=== PATIENT | male | born 1985 | race African-American/Black ===

== ENCOUNTER 2017-02-05 17:17 | Inpatient (IN) ==
[2017-02-05 18:03] LABS: Apearance,Urine CLEAR (Clear); Bacteria,Urine Occasional /HPF (Few); Bilirubin,Urine Negative (Negative); Blood, Urine Negative (Negative); Glucose,Urine (UA) Negative (Negative); Hyaline Casts,Urine 1 /LPF (0-3); Ketones,Urine Negative (Negative); Mucus,Urine Occasional /LPF (Occasional); Nitrite,Urine Negative (Negative); Protein,Urine Negative; RBC,Urine <1 /HPF (0-4); Urine Color Yellow (Yellow); Urine Specific Gravity 1.017 (1.001-1.035); WBC,Urine <1 /HPF (0-6)
[2017-02-05 18:06] LABS: Basophils % 0.5 % (0.0-0.8); Eosinophils % 0.5 % (0.00-10.9); Hematocrit 48.7 VOL% (42.0-52.0); Hemoglobin 16.4 GM/DL (14.0-18.0); Immature Granulocytes % 0.4 %; Immature Granulocytes Absolute 0.03 #; Lymphocytes # 2.4 10*3/uL (1.4-4.0); Lymphocytes % 29.7 % (21.2-54.2); Mean Corpuscular HGB Conc 33.7 GM/DL (32-36); Mean Corpuscular Hemoglobin 30 PG (27-34); Mean Corpuscular Volume 90.2 FL (87-102); Mean Platelet Volume 11.7 FL (9.6-12.0); Monocytes # 0.7 10*3/uL (0.11-0.8); Monocytes % 8.7 % (1.7-12.7); Neutrophils # 4.9 10*3/uL (1.4-7.4); Neutrophils % 60.2 % (38.7-73.9); Platelet Count 197 T/CUMM (130-400); Red Cell Distribution Width 15.9 % (9.3-17.3); White Blood Count 8.1 T/CUMM (4-12)
[2017-02-05 18:13] LABS: Alanine Aminotransferase 37 U/L (16-61); Albumin 3.5 G/DL (3.4-5.0); Alkaline Phosphatase 66 U/L (45-117); Aspartate Amino Transferase 27 U/L (0-37); Blood Urea Nitrogen 21 MG/DL (7-18); Calcium 8.9 MG/DL (8.5-10.1); Glucose 92 MG/DL (74-106); Potassium 4.1 MMOL/L (3.5-5.1); Sodium 143 MMOL/L (136-145); Total Protein 6.7 G/DL (6.4-8.3)
--- NOTE | 2017-02-05 18:15 | CT Report ---
CT head/brain wo con Indication: Slurred speech. Left facial droop. CT BRAIN WITHOUT CONTRAST DLP: 915 mGy*cm. One or more of the following dose reduction techniques was used: Automated exposure control, adjustment of the mA and/or kV according the patient size, or use of iterative reconstruction techniques. Comparison: None. Date of admission: 02/05/2017. Technique: Axial noncontrast CT images of the brain were obtained. Findings: No acute hemorrhage, mass or mass effect. Ventricles and sulci are appropriate for age. Bazzi-white junction is maintained throughout. No focal bone lesions are shown. Nodular mucosal thickening of the ethmoid and left maxillary sinus noted. The remainder paranasal sinuses are clear. Impression: No acute intracranial pathology. Mild chronic appearing ethmoid and left maxillary sinusitis. PROCEDURE INTERPRETED AT [facility] DEPARTMENT OF RADIOLOGY Final Report Signed by: Robert Hernandez M.D.
--- NOTE | 2017-02-05 18:16 | XRay Report ---
XR chest 2V Indication: Hypertension. Chest 2 views: No comparison. Moderate cardiomegaly is present. Mediastinal contours unremarkable. No discrete infiltrates are shown with pulmonary hypoinflation noted. Impression: Moderate cardiomegaly without overt CHF. Pulmonary hypoinflation. PROCEDURE INTERPRETED AT [facility] DEPARTMENT OF RADIOLOGY Final Report Signed by: Robert Hernandez M.D.
[2017-02-05] MEDS ORDERED: LABETALOL 20 MG/4 ML SYRINGE IV STA (18:37)
[2017-02-05] MEDS ORDERED: ENOXAPARIN 100 MG/ML SYRINGE SUBCUT STA (18:38)
[2017-02-05] MEDS ORDERED: LABETALOL 20 MG/4 ML SYRINGE IV ONE (18:50)
[2017-02-05] MEDS ORDERED: ENOXAPARIN 100 MG/ML SYRINGE SUBCUT ONE (18:50)
--- NOTE | 2017-02-05 19:04 | Emergency Department Note ---
Arrival - Arrival Chief Complaint: Neuro Stated Complaint: slurred speech and facial droop ED Nursing Triage Note: Pt arrived via ems with neuro symptoms. Pt with slurred speech and left sided facial drooping. VINCENT's well. Pt reports dizziness. A/O x 3. Pt reports being discharged from other hospital on yesterday for htn. Mode of Arrival: Stretcher Limitations: No Limitations Source: Patient, Family, RN Notes Reviewed Time Seen by Provider: 02/05/17 18:20 - History of Present Illness HPI Narrative: Patient presents via EMS with left-sided facial droop and dysarthria. The family states that he was coming out of the bathroom around [facility] this afternoon and suddenly stood still with his hands clenched in front of him. They say he had a blank stare for approximately 2-5 minutes and was not speaking or responding. He did not fall. There were no convulsions. When he came around he was not disoriented or confused. His only symptoms throughout the episode were left sided facial drooping and dysarthria. On arrival here those were his presenting symptoms and by the time I saw him that had improved significantly according to the nurse. Patient has a history of hypertension and cardiomegaly diagnosed last week during an admission to a hospital in [place]. He was started on lisinopril, metoprolol and Norvasc. He has no other significant past medical history and no history of similar symptoms in the past. Allergies/Adverse Reactions: Allergies Allergy/AdvReac Type Severity Reaction Status Date / Time No Known Allergies Allergy Verified 02/05/17 17:46 Review of System - Review of System 12 point system: reviewed and no additional remarkable complaints except as stated - Review of System Constitutional: Absent: diaphoresis, fever, weakness Head/Ears/Nose/Throat: Absent: nasal drainage, sore throat Respiratory: Absent: cough, respiratory distress Cardiovascular: Absent: chest pain Gastrointestinal: Absent: abdominal pain, nausea, vomiting Musculoskeletal: Absent: arm pain, back pain, neck pain Neurological: Present: weakness (Left facial), confusion (Resolved). Absent: headache, numbness, paresthesias, abnormal gait, vertigo Medical,Surgical,& Family Hx - Medical History Cardio: History of: Hypertension - Surgical History Abdominal Surgeries: Surgical HX of: Appendectomy - Family History Family History: noncontributory - Social History Smoking Status: Smoker, status unknown Frequency of Alcohol Use: Occasionally Type of Drug Use: None Exam Physical Examination: GENERAL: Alert. No acute distress. HEENT: Normocephalic and atraumatic. PERRL, EOM intact. There is no nasal discharge. No pharyngeal erythema or exudate. NECK: Normal inspection. Supple. No lymphadenopathy or meningismus. LUNGS: No respiratory distress. Clear to auscultation bilaterally, no wheezes, rales or rhonchi. HEART: Regular rate and rhythm. SKIN: Color normal. Warm and dry. EXTREMITIES: Nontender. Normal range of motion. NEUROLOGICAL/PSYCHIATRIC: Alert and oriented -4. Normal mood and affect. Speech is slightly slurred. There is some slight drooping of the left face and slight weakness of the left periorbital muscles. The tongue deviates slightly to the left. Facial sensation is intact. Sensory examination and motor examination of the extremities is normal. Reflexes are normal. Babinski's normal bilaterally. There is no pronator drift. Finger to nose is normal bilaterally. Vital Signs: Vital Signs Temperature 98.0 F 02/05/17 17:19 Pulse Rate 107 H 02/05/17 17:19 Respiratory Rate 32 H 02/05/17 17:19 Blood Pressure 167/112 02/05/17 17:19 O2 Sat by Pulse Oximetry 99 02/05/17 17:19 Course - Reevaluation(s) Reevaluation #1: The patient has improved since arrival to the ER. His dysarthria and facial droop were worse on presentation. Now he has only a mild left-sided facial droop, tongue deviation to the left and mild dysarthria. His NIH score is only 2. I have discussed patient with Dr. Delgadillo who agrees that his symptoms are too mild to consider TPA. I have discussed all of this extensively with the family and they also agree that the risk of TPA are too great given his relatively minor and improving deficits. Time: 19:00 Reevaluation #2: I have discussed the patient with the hospitalist service who will see him and admit. I have given him labetalol for his blood pressure. Time: 19:05 Results - Labs CBC & BMP: 02/05/17 17:47 02/05/17 17:47 Disposition Clinical Impression: Cerebrovascular accident Case discussed with: patient, patient's family Disposition: Still a Patient Condition: Stable Time of Disposition: 19:13
[2017-02-05] MEDS ORDERED: ACETAMINOPHEN 325 MG TABLET PO PRN (19:08)
[2017-02-05] MEDS ORDERED: DOCUSATE SODIUM 100 MG CAPSULE PO PRN (19:08)
[2017-02-05] MEDS ORDERED: ONDANSETRON 4 MG/2 ML VIAL IV PRN (19:08)
[2017-02-05] MEDS ORDERED: ZALEPLON 5 MG CAPSULE PO PRN (19:08)
[2017-02-05] MEDS ORDERED: hydrALAZINE 20 MG/1 ML VIAL IV PRN (19:14)
[2017-02-05 19:37] LABS: Barbiturates Screen,Urine Negative (Negative); Benzodiazepines Screen,Urine Negative (Negative); Cannabinoid Screen,Urine Negative (Negative); Opiate Screen,Urine Negative (Negative); Phencyclidine Screen,Urine Negative (Negative)
--- NOTE | 2017-02-05 20:03 | Hospitalist History & Physical ---
Assessment and Plan - Time spent with patient Time spent with patient: Greater than 30 minutes Time spent discussing smoking cessation with patient: 3 to 10 minutes (1) Cerebrovascular accident Status: Acute Assessment and plan: Admit to monitored bed. Consult neurology. Check lipid panel, HA1C, TSH. Start ASA and statin. Obtain MRI brain, carotid US, 2D echo in AM. Smoking cessation Recommend weight loss. Stroke order set used. PT/OT/ST consult. Current Visit: Yes Qualifiers: CVA mechanism: unspecified Qualified Code(s): I63.9 - Cerebral infarction, unspecified (2) Hypertension Status: Acute Assessment and plan: Hydralazine PRN. Start metoprolol and norvasc. Allow for permissive HTN. Current Visit: Yes Qualifiers: Hypertension type: essential hypertension Qualified Code(s): I10 - Essential (primary) hypertension (3) Tobacco abuse Status: Acute Assessment and plan: Smoking cessation discussed for 5 minutes. Current Visit: Yes History of Present Illness Chief complaint: Left-sided facial drooping History of present illness: Mr. Mckinney is a 31 year old male brought to the ED by EMS accompanied by family with complaints of left-sided facial drooping. Mr. Mckinney reports that onset of symptoms began today around 15:30 when he was unable to spit into the bathroom sink and his words became slurred. He also reports that his bilateral hands were drawn up. Upon arrival to the ED, Mr. Mckinney was found to have elevated BP with SBP >180 and DBP >100. Since arrival to the ED, his symptoms have improved somewhat, but he states he is not back to baseline. He reports also having associated intermittent left-sided chest pain that felt like pressure. This chest pain has also improved since arrival to the ED. Additionally, Mr. Mckinney reports that he was admitted to a hospital in [place], [place] on for severely elevated BP and was told he had an enlarged heart. He was discharged yesterday with new prescriptions for BP meds of which he took the first dose this morning. Mr. Maguire has no PMH and took no medications prior to his new diagnosis of HTN on . He has a surgical history of appendectomy However, he does have a family medical history significant for HTN, DM, CVA, COPD and CAD. Allergies Allergy/AdvReac Type Severity Reaction Status Date / Time No Known Allergies Allergy Verified 02/05/17 17:46 Medical,Surgical,& Family Hx - Medical History Cardio: History of: Hypertension - Surgical History Abdominal Surgeries: Surgical HX of: Appendectomy - Family History Family History: Reports;: Family Diabetes, Family Heart Disease, Family Hypertension, Family Stroke - Social History Smoking Status: Current every day smoker Have you smoked in the last 12 months: Yes Time spent discussing smoking cessation with patient: 3 to 10 minutes (5 minutes ) Frequency of Alcohol Use: Occasionally Type of Drug Use: None Marital Status: Single Lives With:: Significant Other Functional capacity: independent ambulation 12 point system: reviewed and no additional remarkable complaints except as stated - Constitutional Constitutional: Absent: fever(s), headache(s), weakness - EENT Eyes: Absent: blurry vision, diplopia, loss of vision Ears: Absent: decreased hearing, ear discharge, tinnitus Nose, mouth and throat: Absent: dysphagia, headache(s) - Cardiovascular Cardiovascular: Present: chest pain at rest. Absent: dyspnea, dyspnea on exertion, edema, palpitations - Respiratory Respiratory: Absent: cough, dyspnea, dyspnea on exertion, wheezing, pain on inspiration - Gastrointestinal Gastrointestinal: Absent: abdominal pain, constipation, diarrhea, nausea, vomiting - Genitourinary Genitourinary: Absent: dysuria - Musculoskeletal Musculoskeletal: Absent: muscle weakness, myalgias - Neurological Neurological: Present: abnormal speech, focal weakness. Absent: abnormal gait, confusion, convulsions, disequilibrium, dizziness, headache(s), memory loss, numbness, paresthesias, syncope - Psychiatric Psychiatric: Absent: anxiety, confusion, depression, memory loss - Endocrine Endocrine: Absent: polydipsia, polyphagia, polyuria - Hematologic/Lymphatic Hematologic/Lymphatic: Absent: easy bleeding, easy bruising Exam - Constitutional Vitals: Period Temp Pulse Resp BP Sys/[place] Pulse Ox Last 24 Hr 98.0 F-98.0 F 93-109 22-32 149-188/95-128 94-100 Exam: Constitutional System: Well-developed. No distress. No tremulousness. Patient is alert awake and oriented 3. Head: Normocephalic, atraumatic. Ears, Nose and Throat System: No pain or tenderness. No epistaxis or discharge Eyes System: Pupils equal, round, and reactive. Extraocular muscles intact. Neck: Supple, without adenopathy, No jugular venous distention. No thyromegaly, neck mass, or prior surgery apparent. Respiratory System: Chest clear to auscultation. Cardiovascular System: Heart with regular rate and rhythm. No murmur. GI System: Abdomen soft, nontender. Normo active bowel sounds present. Musculoskeletal System: limbs with no pedal edema. Full distal pulses. Normal capillary refill. Neurological System: Mild left-sided facial dropping. Mild dysarthria with slurred speech, however, speech is grossly understandable. Facial sensory perception equal bilaterally. BUE and BLE strength 5/5. Tongue deviation to the left. Extraocular movements intact. Psychiatric System: Conversation is rational Results - Labs CBC & BMP: 02/05/17 17:47 02/05/17 17:47 Lab Results: I have reviewed the past 24 hour labs - Diagnostic Findings Procedure: CT: report reviewed by me Quality Measures - Stroke Onset of Symptoms Date: 02/05/17 Onset of Symptoms Time: 15:30
[2017-02-05 21:08] LABS: Osmolality,Calculated 288.8 MOS/KG (273-304); Potassium 3.8 MMOL/L (3.5-5.1); Troponin I Only 0.024 NG/ML (0.00-0.045)
[2017-02-05] MEDS: ATORVASTATIN 80 MG TABLET PO SCH (22:36)
[2017-02-05] MEDS: SODIUM CHLORIDE 0.9% 1,000 ML IV SCH (23:20)
[2017-02-06 06:28] LABS: Magnesium 2.4 MG/DL (1.8-2.4); Risk Ratio 5.64; Thyroid Stimulating Hormone 0.984 uIU/ml (0.358-3.74); VLDL CHOLESTEROL 25.6 MG/DL
[2017-02-06] MEDS: METOPROLOL TARTRATE 25 MG TABLET PO SCH (09:11)
[2017-02-06] MEDS: amLODIPine 2.5 MG TABLET PO SCH (09:12)
[2017-02-06] MEDS: ASPIRIN EC 81 MG TABLET PO SCH (09:12)
[2017-02-06] MEDS: PANTOPRAZOLE 40 MG TABLET PO SCH (09:12)
--- NOTE | 2017-02-06 09:18 | Ultrasound Report ---
CAROTID ULTRASOUND Comparison: None. Findings: Grayscale, color Doppler and pulsed Doppler interrogation of the carotid and vertebral arteries performed. Severity of stenosis based on flow velocity measurements using NASCET criteria. Ultrasound images are captured and stored. Distal right ICA diameter: 5.4 mm Distal left ICA diameter: 5.3 mm Peak systolic flow velocities in centimeters per second are as follows: Right: CCA: 89.9 Proximal ICA: 45.8 Distal ICA: 37.9 ICA/CCA ratio: 0.5 Left: CCA: 84.9 Proximal ICA: 56.6 Distal ICA:66.6 ICA/CCA ratio: 0.8 External carotid arteries: Both are patent with antegrade flow. Vertebral arteries: Both are patent with antegrade flow. Grayscale and color Doppler images: No significant focal plaque deposition identified, with normal color Doppler flow present. Pulse Doppler waveform interrogation: No significant spectral broadening. Impression: No hemodynamically significant stenosis of either ICA origin. PROCEDURE INTERPRETED AT [facility] DEPARTMENT OF RADIOLOGY Final Report Signed by: Robert Hernandez M.D.
--- NOTE | 2017-02-06 10:41 | EKG Report ---
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
--- NOTE | 2017-02-06 11:48 | Magnetic Resonance Report ---
MR head/brain wo con Indication: Acute stroke. MRI BRAIN WITHOUT CONTRAST Technique: Multiplanar noncontrast MR images of the brain were obtained. Comparison: None. Findings: Small area of restricted diffusion involves the right parietal cortex. Only limited T2 signal changes in the region. No evidence of hemorrhage on gradient echo. No mass or mass effect. No volume loss. No significant T2 or FLAIR hyperintensities within the deep white matter of the convexities. Orbits are symmetric. Nodular mucosal thickening of the left maxillary and ethmoid sinus is noted. Internal auditory canals are symmetric. Impression: Acute or subacute small infarct of the right parietal lobe. PROCEDURE INTERPRETED AT [facility] DEPARTMENT OF RADIOLOGY Final Report Signed by: Robert Hernandez M.D.
--- NOTE | 2017-02-06 11:49 | Event Note ---
Patient gone for MRI
--- NOTE | 2017-02-06 14:15 | Hospitalist Progress Note ---
Assessment and Plan (1) Cerebrovascular accident Status: Acute Assessment and plan: Echo ordered Neurology consulted MRI with acute or subacute small infarct of the right parietal lobe Current Visit: Yes Qualifiers: CVA mechanism: unspecified Qualified Code(s): I63.9 - Cerebral infarction, unspecified (2) Hypertension Status: Acute Current Visit: Yes Qualifiers: Hypertension type: essential hypertension Qualified Code(s): I10 - Essential (primary) hypertension (3) Tobacco abuse Status: Acute Current Visit: Yes Hospitalist: Subjective Interval history: No acute events overnight. Long discussion with patient today about the importance of medication compliance. Exam - Constitutional Vitals: Period Temp Pulse Resp BP Sys/[place] Pulse Ox Last 24 Hr 96.6 F-98.0 F 87-109 19-32 123-188/79-134 94-100 General appearance: over weight - Head Head exam: Present: normocephalic, atraumatic - Eye Eye exam: Present: EOMI Pupils: Present: DELORES - ENT ENT exam: Present: normal exam - Neck Neck exam: Present: normal inspection - Respiratory Respiratory exam: Present: clear to auscultation bilaterally. Absent: rhonchi, wheezes - Cardiovascular Cardiovascular exam: Present: regular rate and rhythm - GI/Abdominal GI/Abdominal exam: Present: normal bowel sounds, soft. Absent: tenderness, rebound - Extremities Exam Extremities exam: Present: normal inspection - Back Exam Back exam: Present: normal inspection - Neurological Exam Neurological exam: Present: alert, oriented X3 - Psychiatric Psychiatric exam: Present: normal affect, normal mood - Skin Skin exam: Present: warm, intact Results - Labs CBC & BMP: 02/05/17 17:47 02/05/17 20:27 Quality Measures - Stroke Onset of Symptoms Date: 02/05/17 Onset of Symptoms Time: 15:30 Presenting Symptoms: Left hemiparesis
[2017-02-06] MEDS: SODIUM CHLORIDE 0.9% 1,000 ML IV SCH (16:39)
--- NOTE | 2017-02-06 16:58 | Neurology Consult Note ---
History of Present Illness History of present illness: Mr. Mckinney is a 31 year old right handed AA gentleman with PMHx significant for HTN, smoking brought to the ED by EMS accompanied by family with complaints of left-sided facial drooping. Mr. Mckinney reports that onset of symptoms began yesterday around 15:30 when he was unable to spit into the bathroom sink and his words became slurred. He also reports that his bilateral hands were drawn up. Upon arrival to the ED, Mr. Mckinney was found to have elevated BP with SBP >180 and DBP >100. Since admission to the hospital his symptoms has improved significantly, but he states he is not back to baseline. Additionally , Mr. Mckinney reports that he was admitted to a hospital in [place], [place] on for severely elevated BP and was told he had an enlarged heart. He was discharged yesterday with new prescriptions for BP meds of which he took the first dose this morning. Mr. Maguire has no PMH and took no medications prior to his new diagnosis of HTN on . MRI brain revealed acute to subacute right perital lobe infarct. Carotid doppler is negative and lipid profile is normal. Allergies Allergy/AdvReac Type Severity Reaction Status Date / Time No Known Allergies Allergy Verified 02/05/17 17:46 12 point system: reviewed and no additional remarkable complaints except as stated Medical,Surgical,& Family Hx - Medical History Cardio: History of: Hypertension - Surgical History Abdominal Surgeries: Surgical HX of: Appendectomy - Family History Family History: Reports;: Family Diabetes, Family Heart Disease, Family Hypertension, Family Stroke - Social History Smoking Status: Current every day smoker Frequency of Alcohol Use: Occasionally Type of Drug Use: None Exam - Constitutional Vitals: Period Temp Pulse Resp BP Sys/[place] Pulse Ox Last 24 Hr 96.6 F-98.0 F 87-109 19-32 123-188/79-134 94-100 Exam: GENERAL: Patient is in no acute distress. NECK: Neck is supple. There is no JVD. No carotid bruits present. No thyroid masses. CVS: First and second heart sounds are normal. There is no S3 present. Regular rate and rhythm. RESPIRATORY: Lungs are clear to auscultation without any rales or rhonchi. ABDOMEN: Soft and non-tender. Bowel sounds are present. There is no hepatosplenomegaly. EXT: There is no palpable edema. Peripheral pulses are present. Skin: No rashes Central Nervous system: General: Alert, awake and Oriented x 3 Speech: Fluent Comprehension: Intact and normal Facial expressions: Normal Cranial Nerves: CN1/Olfactory: Normalnormalunreliable CN III, and : DELORES & EOMI CN V: Normal & intact CN VII: face is symmetric CNVIII: Normal CN XI/X/XI/XII: Intact and Normal Motor: Bulk and Tone is normal. Strength in the right 5/5 Strength in the left 5/5 Sensory: Grossly intact for all the modalities of PP, LT and temp sense Reflexes: 1+ and symmetrical Cerebellar function: Normal finger to nose and heel to lopes testing. Toes: Equivocal Gait: Normal Results - Labs CBC & BMP: 02/05/17 17:47 02/05/17 20:27 Assessment and Plan (1) Cerebrovascular accident Status: Acute Assessment and plan: Cont ASA a day Current Visit: Yes Qualifiers: CVA mechanism: unspecified Qualified Code(s): I63.9 - Cerebral infarction, unspecified (2) Hypertension Status: Acute Assessment and plan: Cont current meds Current Visit: Yes Qualifiers: Hypertension type: essential hypertension Qualified Code(s): I10 - Essential (primary) hypertension (3) Tobacco abuse Status: Acute Assessment and plan: Counseled regarding cessation of smoking Echo Current Visit: Yes
[2017-02-06] MEDS ORDERED: ENOXAPARIN 40 MG/0.4 ML SYRINGE SUBCUT SCH (18:00)
[2017-02-06] MEDS: ATORVASTATIN 80 MG TABLET PO SCH (21:42)
--- NOTE | 2017-02-06 23:30 | ECHO Report ---
Iqra Mckinney Exam Date: 02/06/2017 10:27 Referring Physician: Technologist: Marie Ac LRSHIVAM Age: 31 Ht (in): 72 Wt (lb): 243 Gender: M Exam [facility]: [facility] Echo Indications: slurred speech, weakness, CVA, HTN BP: 140 / 97 HR: 91 Rhythm: Sinus Technical Quality: Good IMPRESSIONS no mass or thrombus is seen Mild concentric left ventricular hypertrophy with diastolic dysfunction. Left ventricular ejection fraction is estimated at 20 %. The right atrium is mildly enlarged. Moderately increased left atrial size. Mildly thickened mitral valve with mild mitral regurgitation. Trace aortic valve regurgitation. Trace tricuspid valve regurgitation. Trace pulmonary valve regurgitation. MEASUREMENTS (Male / Female) Normal Values 2D ECHO LV Diastolic Diameter PLAX 5.7 cm 4.2 - 5.9 / 3.9 - 5.3 cm LV Systolic Diameter PLAX 4.7 cm LV Fractional Shortening PLAX 16.5 % IVS Diastolic Thickness 1.4 cm 0.6 - 1.0 / 0.6 - 0.9 cm LVPW Diastolic Thickness 1.4 cm 0.6 - 1.0 / 0.6 - 0.9 cm Aortic Root Diameter 2.6 cm LA Systolic Diameter LX 4.3 cm 3.0 - 4.0 / 2.7 - 3.8 cm FINDINGS Left Ventricle Moderately increased left ventricular cavity size.mild concentric left ventricular hypertrophy with diastolic dysfunction. Left ventricular ejection fraction is estimated at 20 %. Right Ventricle Mildly increased right ventricular size. Right Atrium The right atrium is mildly enlarged. Left Atrium Moderately increased left atrial size. Mitral Valve Mildly thickened mitral valve with mild mitral regurgitation. Aortic Valve The aortic valve is trileaflet and has normal motion. Trace aortic valve regurgitation. Tricuspid Valve Morphologically normal tricuspid valve. Trace tricuspid valve regurgitation. Pulmonic Valve Morphologically normal pulmonic valve. Trace pulmonary valve regurgitation. Pericardium No pericardial effusion. Aorta Normal size aortic root and proximal ascending aorta. Corona Motley MD (Electronically Signed) Final Date: 06 February 2017 23:28
[2017-02-07 05:01] LABS: Basophils # 0.1 10*3/uL (0.0-0.2); Basophils % 0.7 % (0.0-0.8); Eosinophils # 0.1 10*3/uL (0.0-0.87); Hematocrit 48.4 VOL% (42.0-52.0); Hemoglobin 16.2 GM/DL (14.0-18.0); Immature Granulocytes % 0.3 %; Immature Granulocytes Absolute 0.02 #; Lymphocytes # 2.3 10*3/uL (1.4-4.0); Lymphocytes % 31.8 % (21.2-54.2); Mean Corpuscular HGB Conc 33.5 GM/DL (32-36); Mean Corpuscular Hemoglobin 30 PG (27-34); Mean Corpuscular Volume 90.6 FL (87-102); Mean Platelet Volume 11.5 FL (9.6-12.0); Monocytes # 0.5 10*3/uL (0.11-0.8); Monocytes % 7.3 % (1.7-12.7); Neutrophils # 4.2 10*3/uL (1.4-7.4); Neutrophils % 58.9 % (38.7-73.9); Platelet Count 173 T/CUMM (130-400); Red Blood Count 5.34 MC/CUMM (3.8-5.5); Red Cell Distribution Width 15.8 % (9.3-17.3); White Blood Count 7.2 T/CUMM (4-12)
[2017-02-07 05:30] LABS: Calcium 8.9 MG/DL (8.5-10.1); Magnesium 2.3 MG/DL (1.8-2.4); Osmolality,Calculated 287.8 MOS/KG (273-304); Potassium 4.5 MMOL/L (3.5-5.1)
[2017-02-07] MEDS: METOPROLOL TARTRATE 25 MG TABLET PO SCH (08:26)
[2017-02-07] MEDS: ASPIRIN EC 81 MG TABLET PO SCH (08:27)
[2017-02-07] MEDS: PANTOPRAZOLE 40 MG TABLET PO SCH (08:28)
[2017-02-07] MEDS: amLODIPine 2.5 MG TABLET PO SCH (08:28)
[2017-02-07] MEDS ORDERED: CARVEDILOL 6.25 MG TABLET PO SCH (09:30)
[2017-02-07] MEDS ORDERED: LOSARTAN 25 MG TABLET PO SCH (09:30)
--- NOTE | 2017-02-07 10:22 | Cardiology Consult Note ---
Alma Snyder April RN, am scribing for, and in the presence of, Samara Oshea MD 10:21. Assessment and Plan - Time spent with patient Time spent with patient: Greater than 30 minutes (Due to assessment, planning, documentation, medication review) (1) Cardiomyopathy Status: Acute Current Visit: Yes (2) Cerebrovascular accident Status: Acute Current Visit: Yes Qualifiers: CVA mechanism: unspecified Qualified Code(s): I63.9 - Cerebral infarction, unspecified (3) Hypertension Status: Acute Current Visit: Yes Qualifiers: Hypertension type: essential hypertension Qualified Code(s): I10 - Essential (primary) hypertension (4) Tobacco abuse Status: Chronic Current Visit: Yes History of Present Illness - Data of Consult Patient: new to practice Consult date: 02/07/17 Requesting Physician: Angeli Rosado - Consult Narrative Reason for consult: EF 20% History of present illness: [place]: New to cardiology Mr. Mckinney is a 31 year old male who has a history of hypertension. He reports he was started on high blood pressure medicine in the past but quit taking it, mainly because he was "hard headed" or not because of any adverse effects. Last week he was admitted in the hospital in [place] for severe hypertension and was also told he had an enlarged heart. He denies taking any daily medications prior to last week. Surgical history is positive for appendectomy. He denies any recent drug use (within the last 2-3 years) and admits to occasional alcohol use. He presented emergency department at [facility] on February 05 with complaint of slurred speech. He denies having any shortness of breath, edema, orthopnea. He has not noticed any chest discomfort. He does report noticing a decrease in his activity level over the last 2-3 months. Within the last 6 months to 1 year he has not had any upper respiratory infection. on arrival his blood pressure was found to be 170/110. He was given labetalol 20 mg IV and hydralazine 10 mg IV in the emergency department. His blood pressures have improved some, but they continue to be elevated. This morning it is 150/104. He has been given IV fluids and his creatinine is improved from 1.6-1.3. TSH was 0.984. Echocardiogram showed ejection fraction of 20%, no mass or thrombus was noted. MRI of the brain indicated acute or subacute small infarct in the right parietal lobe. Dr. Delgadillo has seen him in consultation. Carotid Doppler was negative. This morning he is seen sitting up in chair. He does feel like he is back to his baseline. His speech is not slurred this morning and he has no noticeable muscular weakness. He denies any chest pain or shortness of breath at this time. Assessment/plan: 1. Cardiomyopathy-this is a new diagnosis. He is without overt signs or symptoms of congestive heart failure, and he does not have any anginal symptoms. This may be due to uncontrolled hypertension. We will also rule out HIV. We will refine his antihypertensive regimen to be a cardiomyopathy regimen , including ARB (he has an underlying history of dry cough and we do not want to confuse his symptoms), and beta-lupe. We will reassess his cardiac function in 3 months as long as he remains asymptomatic, and determine whether or not he needs to proceed with cardiac catheterization at that time. If becomes more symptomatic, we may need to proceed with catheterization sooner. 2. Cerebrovascular accident-he feels as though he is back to his baseline. Dr. Delgadillo has seen in consultation. 3. Hypertension-this has been controlled. We will change his metoprolol to Coreg 6.25 twice daily and add Cozaar 25 mg daily. We will go ahead and schedule a one-month follow-up to see us back in the office. 4. Tobacco abuse-merits and techniques of cessation have been addressed. CC: Angeli Rosado MD - Home Medications and Allergies Allergies/Adverse Reactions: Allergies Allergy/AdvReac Type Severity Reaction Status Date / Time No Known Allergies Allergy Verified 02/05/17 17:46 12 point system: reviewed and no additional remarkable complaints except as stated - Constitutional Constitutional: Present: as per HPI - Cardiovascular Cardiovascular: Absent: chest pain at rest, chest pain with activity, dyspnea, dyspnea on exertion, edema, radiating jaw, neck or arm pain, orthopnea - Respiratory Respiratory: Present: cough (Dry) - Gastrointestinal Gastrointestinal: Absent: constipation, diarrhea, hematemesis, hematochezia, melena, nausea, vomiting - Endocrine Endocrine: Present: fatigue Medical,Surgical,& Family Hx - Medical History Cardio: History of: Hypertension Neurology: History of: Cerebrovascular Accident - Surgical History Abdominal Surgeries: Surgical HX of: Appendectomy - Family History Family History: Reports;: Family Diabetes, Family Heart Disease, Family Hypertension, Family Stroke - Social History Smoking Status: Current every day smoker Frequency of Alcohol Use: Occasionally Type of Drug Use: None Physical Examination Vital Signs Temp Pulse Resp BP Pulse Ox 98.0 F 107 H 32 H 167/112 99 02/05/17 17:19 02/05/17 17:19 02/05/17 17:19 02/05/17 17:19 02/05/17 17:19 General: Present: Appears Well, No Apparent Distress HEENT: Present: PERRL, Mucus Membranes Moist Neck: Present: Supple Neck, Midline Trachea, No Bruit Cardiac: Present: Reg Rate and Rhythm, No Murmur, Tachycardia Lungs: Present: Normal Breath Sounds, No Wheeze, Rales, Rhonchi Neuro: Absent: Weakness, Resting Tremor, Essential Tremor Abdomen: Present: Soft, Active Bowel Sounds, Non-Tender. Absent: Distended Skin: Present: Clear. Absent: Rash, Suspicious Lesions Musculoskeletal: Present: No Pain, Normal Range of Motion Extremities: Present: No Edema, Normal Upper Extr. Pulses, Normal Lower Extr. Pulses Result/EKG - Labs CBC & BMP: 02/07/17 04:51 02/07/17 04:51 Lab Results: I have reviewed the past 24 hour labs Labs: Laboratory Results - last 24 hr 02/07/17 02/07/17 04:51 04:51 WBC 7.2 RBC 5.34 Hgb 16.2 Hct 48.4 MCV 90.6 MCH 30 MCHC 33.5 RDW 15.8 Plt Count 173 MPV 11.5 Neut % (Auto) 58.9 Lymph % (Auto) 31.8 [place] % (Auto) 7.3 Eos % (Auto) 1.0 Baso % (Auto) 0.7 Neut # (Auto) 4.2 Lymph # (Auto) 2.3 [place] # (Auto) 0.5 Eos # (Auto) 0.1 Baso # (Auto) 0.1 Immature Gran % 0.3 Nucleated RBC % 0.0 Immature Gran # 0.02 Nucleated RBCs # 0.00 Immature Plt Fraction 0.0 Sodium 144 Potassium 4.5 Chloride 111 H Carbon Dioxide 28 Anion Gap 9.5 BUN 18 Creatinine 1.30 GFR Calculation 112 BUN/Creatinine Ratio 13.00 Glucose 94 Calculated Osmolality 287.8 Calcium 8.9 Magnesium 2.3 - Diagnostic Findings Procedure: Chest x-ray: report reviewed by me - EKG EKG results: interpreted by me (LVH with some repolarization changes) EKG shows: tachycardia, sinus rhythm Quality Measures - Stroke Onset of Symptoms Date: 02/05/17 Onset of Symptoms Time: 15:30 Presenting Symptoms: Left hemiparesis Specialty Discharge - Follow Up or Referrals Follow up with: Samara Oshea MD [Physician] - 1 Month IDayo Jennifer, MD, personally performed the services described in this documentation, ascribed by Jacquie Marquez RN in my presence, and it is both accurate and complete 022 .
[2017-02-07 10:25] LABS: HIV Antigen/Antibody Result Nonreactive (Nonreactive)
--- NOTE | 2017-02-07 11:59 | Discharge Summary ---
<Sharon Medeirosda - Last Filed: 02/07/17 11:57> Hospital Course - Hospital Course Hospital Course: This is a very pleasant 31-year-old male that presented to the ED at [facility] on the night of February 05, 2017 for the evaluation of left-sided facial drooping. Patient reported a medical history significant for hypertension and nicotine addiction and a surgical history of appendectomy. The patient reported the onset of symptoms around 330 on the day of presentation. He reported that he was unable to spit into the bathroom sink and he noticed that his words had become slurred. In addition, the patient reported that his bilateral hands were "drawn up". His family was present and became alarmed when they noticed that the left side of the patient's face was drooping. These observations prompted them to notify EMS for emergency assistance. The patient was subsequently transferred to [facility] for further evaluation. The patient was seen and assessed at the time of ED presentation. The patient was noted to be grossly hypertensive with a blood pressure noted at 167/112 and tachycardic with a heart rate noted at 107. The patient speech remains slightly slurred and a slight droop was noted to the left side of his face. In addition, the patient was also noted to have some weakness to his left upper extremity. Intravenous antihypertensive agents were given in response to the patient's elevated blood pressure. Labs were obtained and were remarkable for chloride of 111, BUN 21, creatinine 1.60, troponin 0 0.020, total creatinine kinase 483, and HDL cholesterol was noted at 28. Urinalysis was essentially unremarkable and urine toxicology was negative. CT head and brain without contrast reported no acute intracranial pathology however mild chronic appearing ethmoid and left maxillary sinusitis was noted. Chest x-ray was remarkable for moderate cardiomegaly without overt congestive heart failure and pulmonary hypoinflation. The patient was subsequently admitted to the hospitalist service for continuation of care. Incidentally, the patient reported a recent hospitalization for severe hypertension 1 week prior to presentation in [place]. He reported that he had been previously diagnosed with hypertension in the past however became noncompliant. During the clinical encounter on last week in [place], the patient reported that he was told that he had cardiomegaly. He reported that he resolved his antihypertensive regimen 1 week prior to presentation. The stroke protocol was initiated. Antihypertensive agents and platelet aggregate others were initiated per protocol. A full stroke workup was performed. On January, carotid Doppler studies were performed which were essentially negative for any evidence of hemodynamically significant stenosis of either internal carotid artery. Echocardiogram performed on February 06, 2017, reported no mass or thrombus seen however, mild concentric left ventricular hypertrophy with diastolic dysfunction was noted. Left ventricular ejection fraction was estimated at 20% along with mildly enlargement of the right atrium and moderately increased left atrial size was noted. There was mildly thickening noted to the mitral valve with mild mitral regurgitation. Trace regurgitation was noted in the aortic, tricuspid, and pulmonary valves. A neurology consultation was requested. The patient was seen and evaluated by neurology and recommendations were given. On February 06, 2017, the patient underwent MRI of the head and brain without contrast which was remarkable for an acute or subacute small infarct of the right parietal lobe. In response to the severity of the patient's current heart function, a cardiology consultation was requested. He was started on coreg and losartan. He will follow-up wiht Dr. Oshea in one month. The patient's condition is stable. He has now reached maximal benefit of inpatient stay and will be discharged to home. We have spoke with the patient in great detail regarding the need to maintain medical compliance. We also spoke with patient regarding the need to refrain from nicotine consumption. He was given information on the free clinic for primary care. Specialty Discharge - Follow Up or Referrals Follow up with: Samara Oshea MD [Physician] - 1 Month Discharge Plan - Discharge Data Disposition: Disch To Home/Self Care - Discharge Medications New Atorvastatin [Lipitor] 80 mg PO BEDTIME #60 tablet Carvedilol [Coreg] 6.25 mg PO BID W/MEALS #60 tablet Losartan [Cozaar] 25 mg PO DAILY #30 tablet amLODIPine [Norvasc] 2.5 mg PO DAILY #30 tablet Aspirin EC Tab 81 mg PO DAILY tablet No Action amLODIPine [Norvasc] 10 mg PO DAILY Metoprolol Tartrate 50 mg PO Q12HR Lisinopril 20 mg PO DAILY Nicotine [Nicotine 14 mg/24 Hr Patch] 1 patch TRANSDERM DAILY PRN PRN Reason: Nicotine Withdrawal - Follow Up or Referral Follow Up: Samara Oshea MD [Physician] - 1 Month - Forms/Instructions Exam - Constitutional Vitals: Period Temp Pulse Resp BP Sys/[place] Pulse Ox Last 24 Hr 97.0 F-98.2 F 83-99 18-20 124-181/70-112 93-99 Discharge Results Labs on day of discharge: Labs from last 24 hours 02/07/17 02/07/17 02/07/17 04:51 04:51 04:48 WBC 7.2 RBC 5.34 Hgb 16.2 Hct 48.4 MCV 90.6 MCH 30 MCHC 33.5 RDW 15.8 Plt Count 173 MPV 11.5 Neut % (Auto) 58.9 Lymph % (Auto) 31.8 [place] % (Auto) 7.3 Eos % (Auto) 1.0 Baso % (Auto) 0.7 Neut # (Auto) 4.2 Lymph # (Auto) 2.3 [place] # (Auto) 0.5 Eos # (Auto) 0.1 Baso # (Auto) 0.1 Immature Gran % 0.3 Nucleated RBC % 0.0 Immature Gran # 0.02 Nucleated RBCs # 0.00 Immature Plt Fraction 0.0 Sodium 144 Potassium 4.5 Chloride 111 H Carbon Dioxide 28 Anion Gap 9.5 BUN 18 Creatinine 1.30 GFR Calculation 112 BUN/Creatinine Ratio 13.00 Glucose 94 Calculated Osmolality 287.8 Calcium 8.9 Magnesium 2.3 HIV 1&2 Antigen & Ab Nonreactive DS: Provider Date of admission: 02/05/17 19:08 Primary care physician: . No PCP Attending physician on admission: Saman Ward MD Consults: 02/05/17 19:08 Consult to Case Mgmt/Social Srvs [CONS] Routine Reason for Case Mgmt/Social Srvs: Discharge Planning Consult to Occupational Therapy [CONS] Routine Reason for Occupational Therapy: Evaluate and Treat Consult Comment: Stroke Consult to Physical Therapy [CONS] Routine Reason for Physical Therapy: Evaluate and Treat Consult Comment: stroke 02/05/17 19:10 Consult to Physician [CONS] Routine Comment: CVA Consulting Provider: Homar Dietrich Consult to Specialist Group: Neurology Person Notified: dr. dietrich Date Notified: 02/06/17 Time Notified: 09:43 02/05/17 21:14 Consult to Pastoral Services [CONS] Routine Comment: Pastoral Screen: Request Candy Spreader Visit Pastoral Screen Source of Request: Patient 02/07/17 07:33 Consult to Physician [CONS] Routine Comment: young patient with uncontrolled htn,cva, ef 20% Consulting Provider: Kim Beltran Discharging clinician: Abigail Medeiros CNP <Angeli Rosado - Last Filed: 02/07/17 12:22> Hospital Course - Time spent with patient Time with patient DS: Greater than 30 minutes (35) Diagnosis - Discharge Diagnosis (1) Cerebrovascular accident Status: Resolved (2) Hypertension Status: Chronic (3) Tobacco abuse Status: Chronic Discharge Plan - Discharge Data Condition at Discharge: Stable Discharge Diet: heart healthy Activity: increase activity as tolerated Hygiene: no restrictions Weight Bearing at Discharge: weight bear as tolerated Exam - Constitutional General appearance: over weight - Head Head exam: Present: normocephalic, atraumatic - Eye Eye exam: Present: EOMI Pupils: Present: DELORES - ENT ENT exam: Present: normal exam - Neck Neck exam: Present: normal inspection - Respiratory Respiratory exam: Present: clear to auscultation bilaterally. Absent: rhonchi, wheezes - Cardiovascular Cardiovascular exam: Present: regular rate and rhythm - GI/Abdominal GI/Abdominal exam: Present: normal bowel sounds, soft. Absent: tenderness, rebound - Extremities Exam Extremities exam: Present: normal inspection - Back Exam Back exam: Present: normal inspection - Neurological Exam Neurological exam: Present: alert, oriented X3 - Psychiatric Psychiatric exam: Present: normal affect, normal mood - Skin Skin exam: Present: warm, intact
--- NOTE | 2017-02-07 13:02 | Neurology Progress Note ---
Neurology - PN : Subjective Interval history: Patient seems to be doing okay. No new problems reported. He is quite asymptomatic. Echocardiogram reveals ejection fraction of 20%. I would recommend some stronger blood thinners such as Eliquis or Xarelto or Pradaxa or Coumadin. Because of patient's lack of insurance he may not be able to afford anything expensive. We will try to put on Plavix and see if if he can afford that. He will see Dr. Oshea as an outpatient Exam (Progress Note) - Constitutional Vitals: Period Temp Pulse Resp BP Sys/[place] Pulse Ox Last 24 Hr 97.0 F-98.2 F 83-99 18-20 124-181/70-112 93-99 Exam: GENERAL: Patient is in no acute distress. NECK: Neck is supple. There is no JVD. No carotid bruits present. No thyroid masses. CVS: First and second heart sounds are normal. There is no S3 present. Regular rate and rhythm. RESPIRATORY: Lungs are clear to auscultation without any rales or rhonchi. ABDOMEN: Soft and non-tender. Bowel sounds are present. There is no hepatosplenomegaly. EXT: There is no palpable edema. Peripheral pulses are present. Skin: No rashes Central Nervous system: General: Alert, awake and Oriented x 3 Speech: Fluent Comprehension: Intact and normal Facial expressions: Normal Cranial Nerves: CN1/Olfactory: Normalnormalunreliable CN III, and : DELORES & EOMI CN V: Normal & intact CN VII: face is symmetric CNVIII: Normal CN XI/X/XI/XII: Intact and Normal Motor: Bulk and Tone is normal. Strength in the right 5/5 Strength in the left 5/5 Sensory: Grossly intact for all the modalities of PP, LT and temp sense Reflexes: 1+ and symmetrical Cerebellar function: Normal finger to nose and heel to lopes testing. Toes: Equivocal Gait: Normal Results - Labs CBC & BMP: 02/07/17 04:51 02/07/17 04:51 Assessment and Plan (1) Cerebrovascular accident Status: Resolved Assessment and plan: Cont ASA a day Add Plavix 75 mg daily Home when okay with PCP Current Visit: Yes Qualifiers: CVA mechanism: unspecified Qualified Code(s): I63.9 - Cerebral infarction, unspecified (2) Hypertension Status: Chronic Assessment and plan: Cont current meds Current Visit: Yes Qualifiers: Hypertension type: essential hypertension Qualified Code(s): I10 - Essential (primary) hypertension (3) Tobacco abuse Status: Chronic Assessment and plan: Counseled regarding cessation of smoking Current Visit: Yes Quality Measures - Stroke Onset of Symptoms Date: 02/05/17 Onset of Symptoms Time: 15:30 Presenting Symptoms: Left hemiparesis Specialty Discharge - Follow Up or Referrals Follow up with: Samara Oshea MD [Physician] - 1 Month
[2017-02-07 13:36] VITALS: BP 155/98
== END 2017-02-07 14:30 | disposition home or self-care (01) | DRG 65 ==
LOC: N.ED 17:17 → SUATTDRO 19:08 → N.EDINP 19:08 → N.2E 19:59
PROVIDERS: ADMIT Family Medicine; ATTEND Internal Medicine

== ENCOUNTER 2017-02-21 19:58 | Observation (INO) ==
[2017-02-21] MEDS ORDERED: ASPIRIN 325 MG TABLET PO STA (21:07)
[2017-02-21] MEDS ORDERED: NITROGLYCERIN SL 0.4 MG TABLET SL PRN (21:07)
[2017-02-21] MEDS ORDERED: NITROGLYCERIN SL 0.4 MG TABLET SL ONE (21:14)
[2017-02-21] MEDS ORDERED: ASPIRIN 325 MG TABLET ONE (21:15)
[2017-02-21 21:38] LABS: Basophils # 0.1 10*3/uL (0.0-0.2); Basophils % 0.9 % (0.0-0.8); Eosinophils % 0.4 % (0.00-10.9); Hematocrit 48.7 VOL% (42.0-52.0); Hemoglobin 16.2 GM/DL (14.0-18.0); Immature Granulocytes % 0.2 %; Immature Granulocytes Absolute 0.02 #; Lymphocytes # 2.1 10*3/uL (1.4-4.0); Lymphocytes % 25.9 % (21.2-54.2); Mean Corpuscular HGB Conc 33.3 GM/DL (32-36); Mean Corpuscular Hemoglobin 30 PG (27-34); Mean Corpuscular Volume 89.9 FL (87-102); Mean Platelet Volume 11.4 FL (9.6-12.0); Monocytes # 0.7 10*3/uL (0.11-0.8); Monocytes % 8.7 % (1.7-12.7); Neutrophils # 5.1 10*3/uL (1.4-7.4); Neutrophils % 63.9 % (38.7-73.9); Platelet Count 191 T/CUMM (130-400); Red Blood Count 5.42 MC/CUMM (3.8-5.5); Red Cell Distribution Width 14.4 % (9.3-17.3)
[2017-02-21 22:07] LABS: Albumin 3.4 G/DL (3.4-5.0); Bilirubin,Total 0.4 MG/DL (0.2-1.0); Calcium 9.6 MG/DL (8.5-10.1); Magnesium 2.6 MG/DL (1.8-2.4); Potassium 3.8 MMOL/L (3.5-5.1); Total Protein 7.1 G/DL (6.4-8.3)
--- NOTE | 2017-02-21 22:31 | Emergency Department Note ---
Danny Snyder Brooke, am scribing for, and in the presence of, Stuart Zavaleta MD 21:13. Waqar Snyder Frederick, MD, personally performed the services described in this documentation, ascribed by Mary Delgado in my presence, and it is both accurate and complete . Arrival - Arrival Chief Complaint: Chest Pain Stated Complaint: chest pain x 2 days,elevated b/p,pain in side ED Nursing Triage Note: Patient to triage with c/o pressure-like pain in the center of his chest for 2 days. Patient states laying on his side makes pain worse. Patient reports he was recently admitted with a TIA last month. Patient is scheduled to see a rabbit breeder next month. Mode of Arrival: Ambulatory Limitations: No Limitations Source: Patient, Significant other, RN Notes Reviewed Time Seen by Provider: 02/21/17 20:55 - History of Present Illness HPI Narrative: Patient is a 31 year old male who presents to the ED with c/o chest pain that started two days ago. Patient describes the pain as pressure and "like something is sitting on my chest." Patient says the pain is intermittent and has lasted as long as an hour. He says the pain is worsened if he lays on his left side but better when he walks. He says he has pain to the bilateral sides that radiates down into his groin but he denies any radiation of pain to the neck, jaw, or arms. However, he does say that he has had some sharp pain in his "fingers." Patient says his blood pressure has been elevated and he states "I can't get it down." Patient's blood pressure during triage was 151/102. He has not taken any pain medications. Patient denies having any diaphoresis but says he has been nauseated, dizzy, and had some shortness of breath, last night. Patient has PMHx of HTN, dyslipidemia, and CVA. He says he had the CVA on February 06 but did not have any lasting effects from it. Patient has FHx of CAD. He is a smoker. Onset (ago): day(s) (2`) Allergies/Adverse Reactions: Allergies Allergy/AdvReac Type Severity Reaction Status Date / Time No Known Allergies Allergy Verified 02/21/17 20:18 Home Medications: Home Medications Medication Instructions Recorded Confirmed Type Aspirin EC Tab 81 mg PO DAILY tablet 02/07/17 Rx Atorvastatin [Lipitor] 80 mg PO BEDTIME #60 tablet 02/07/17 Rx Carvedilol [Coreg] 6.25 mg PO BID W/MEALS #60 tablet 02/07/17 Rx Clopidogrel [Plavix] 75 mg PO DAILY #30 tablet 02/07/17 Rx Lisinopril 20 mg PO DAILY 02/07/17 02/07/17 History Losartan [Cozaar] 25 mg PO DAILY #30 tablet 02/07/17 Rx Metoprolol Tartrate 50 mg PO Q12HR 02/07/17 02/07/17 History Nicotine [Nicotine 14 mg/24 Hr 1 patch TRANSDERM DAILY PRN 02/07/17 02/07/17 History Patch] amLODIPine [Norvasc] 2.5 mg PO DAILY #30 tablet 02/07/17 Rx amLODIPine [Norvasc] 10 mg PO DAILY 02/07/17 02/07/17 History Review of System - Review of System 12 point system: reviewed and no additional remarkable complaints except as stated - Review of System Constitutional: Absent: diaphoresis, fever Respiratory: Present: other (shortness of breath, last night.). Absent: respiratory distress Cardiovascular: Present: chest pain Gastrointestinal: Present: nausea Musculoskeletal: Present: other (bilateral side pain that radiates into groin. Sharp pain in fingers) Skin: Absent: rash Neurological: Present: other (dizziness) Medical,Surgical,& Family Hx - Medical History Cardio: History of: Hypertension Neurology: History of: Cerebrovascular Accident - Surgical History Abdominal Surgeries: Surgical HX of: Appendectomy - Family History Family History: Reports;: Family Diabetes, Family Heart Disease, Family Hypertension, Family Stroke - Social History Smoking Status: Former smoker Frequency of Alcohol Use: None Type of Drug Use: None Exam Vital Signs: Vital Signs Temperature 97.6 F 02/21/17 20:11 Pulse Rate 90 02/21/17 20:11 Respiratory Rate 18 02/21/17 20:11 Blood Pressure 151/102 02/21/17 20:11 O2 Sat by Pulse Oximetry 97 02/21/17 20:11 - General General appearance: alert, in no apparent distress - Head Head exam: Present: atraumatic, normocephalic - Eye Eye exam: Present: normal appearance, PERRL, EOMI - ENT ENT exam: Present: normal exam - Neck Neck exam: Present: normal inspection - Chest Chest inspection: Present: normal inspection, symmetric chest wall rise - Respiratory Respiratory exam: Present: normal lung sounds bilaterally - Cardiovascular Cardiovascular exam: Present: regular rate, normal rhythm, normal heart sounds - Abdominal Exam Abdominal exam: Present: soft, normal bowel sounds. Absent: distention, tenderness - Extremities Exam Extremities exam: Present: normal inspection - Back Exam Back exam: Present: normal inspection - Neurological Exam Neurological exam: Present: alert, oriented X3 - Psychiatric Psychiatric exam: Present: normal affect, normal mood - Skin Skin exam: Present: warm, dry, intact, normal color Course Course Narrative: The patient's cardiac risk profile was normal. His EKG had a left ventricular hypertrophy with strain pattern. He will be admitted to rule out ischemic heart disease. Results - Labs CBC & BMP: 02/21/17 21:18 02/21/17 21:18 Lab Results: I have reviewed the patients labs Labs: Laboratory Tests 02/21/17 21:18 WBC 8.0 RBC 5.42 Hgb 16.2 Hct 48.7 MCV 89.9 MCH 30 MCHC 33.3 RDW 14.4 Plt Count 191 MPV 11.4 Neut % (Auto) 63.9 Lymph % (Auto) 25.9 [place] % (Auto) 8.7 Eos % (Auto) 0.4 Baso % (Auto) 0.9 H Neut # (Auto) 5.1 Lymph # (Auto) 2.1 [place] # (Auto) 0.7 Eos # (Auto) 0.0 Baso # (Auto) 0.1 Immature Gran % 0.2 Nucleated RBC % 0.0 Immature Gran # 0.02 Nucleated RBCs # 0.00 Immature Plt Fraction 0.0 Laboratory Tests 02/21/17 02/21/17 02/21/17 21:18 21:18 21:18 Sodium 143 Potassium 3.8 Chloride 106 Carbon Dioxide 31 Anion Gap 9.8 BUN 13 Creatinine 1.40 H GFR Calculation 102 BUN/Creatinine Ratio 9.00 Glucose 98 Calculated Osmolality 284.0 Calcium 9.6 Magnesium 2.6 H Total Bilirubin 0.40 AST 17 ALT 41 Alkaline Phosphatase 93 Troponin I B-Natriuretic Peptide 253 H Total Protein 7.1 Albumin 3.4 Globulin 3.7 H Albumin/Globulin Ratio 0.9 L Lipase 396.0 H Digoxin 0.10 L 02/21/17 21:18 Sodium Potassium Chloride Carbon Dioxide Anion Gap BUN Creatinine GFR Calculation BUN/Creatinine Ratio Glucose Calculated Osmolality Calcium Magnesium Total Bilirubin AST ALT Alkaline Phosphatase Troponin I < 0.015 B-Natriuretic Peptide Total Protein Albumin Globulin Albumin/Globulin Ratio Lipase Digoxin - EKG EKG results: interpreted by ERMD - Impressions Sinus rhythm, rate 81, left ventricular hypertrophy with strain pattern. Disposition Clinical Impression: Chest pain Case discussed with: patient, patient's family Condition: Stable
[2017-02-22] MEDS ORDERED: ONDANSETRON 4 MG/2 ML VIAL IV PRN (00:31)
[2017-02-22] MEDS ORDERED: ACETAMINOPHEN 325 MG TABLET PO PRN (00:31)
--- NOTE | 2017-02-22 00:55 | Hospitalist History & Physical ---
Assessment and Plan (1) Hypertensive cardiomyopathy Status: Acute Assessment and plan: Patient was noted on the last admission to have moderate increase in left ventricular cavity size and mild concentric left ventricular hypertrophy with diastolic dysfunction. Left ventricular ejection fraction was estimated at that time to be 20%. He is not short winded at this time but has had some fatigue. We will continue his angiotensin receptor lupe despite a slight rise in creatinine to 1.4. Patient is also on amlodipine which is now been raised to 5 mg daily. This does not make a difference during this hospitalization I would encourage you to be increased to 10 mg daily. Addition of a water pill form of Dyazide is discouraged for fear of worsening kidney function due to pressure of dehydration and angiotensin receptor lupe. Current Visit: Yes (2) Systolic and diastolic CHF, chronic Status: Acute Assessment and plan: As above Current Visit: Yes (3) Hypertension Status: Chronic Assessment and plan: As above Current Visit: No Qualifiers: Hypertension type: essential hypertension Qualified Code(s): I10 - Essential (primary) hypertension (4) History of pain at rest Status: Acute Current Visit: Yes (5) Chest pain Status: Acute Assessment and plan: This is quite a typical and that is been going on for 2 days. However the fact that is in association with accelerated hypertension, increasing the blood pressure medication would help. We will see do serial troponins every 3 hours 3 draws.. An EKG in the morning Current Visit: Yes History of Present Illness Chief complaint: Chest pain/accelerated hypertension; H/o RIND History of present illness: Mr. Mckinney is a 31 year old male presented to the emergency room with a history of having had 2 days of chest pains on and off. This patient also had accelerated hypertension. Patient has a history of being admitted to this hospital in the middle of January this year with a symptoms of reversible ischemic neurologic deficit --(RIND/TIA/stroke). He has no residual deficits at this time. His troponin drawn in the emergency room are negative. Will could admit this patient for concern of possibility of unstable angina. I doubt that given the fact that the patient is a simple for 2 days and negatives to troponins. I discussed the case with the physician however upon talking to the patient cover that the major issues expiration of blood pressure with his chest pains. Plan to increase his blood pressure medication some we plan therefore to observe him in the hospital. Blood pressure medications have been reduced significantly at discharge: The last admission. Understandably this could have been reason of needing to have permissive hypertension in the face of an acute neurologic deficit. Home Medications Medication Instructions Recorded Confirmed Type Aspirin EC Tab 81 mg PO DAILY tablet 02/07/17 Rx Atorvastatin [Lipitor] 80 mg PO BEDTIME #60 tablet 02/07/17 Rx Carvedilol [Coreg] 6.25 mg PO BID W/MEALS #60 tablet 02/07/17 Rx Clopidogrel [Plavix] 75 mg PO DAILY #30 tablet 02/07/17 Rx Lisinopril 20 mg PO DAILY 02/07/17 02/07/17 History Losartan [Cozaar] 25 mg PO DAILY #30 tablet 02/07/17 Rx Metoprolol Tartrate 50 mg PO Q12HR 02/07/17 02/07/17 History Nicotine [Nicotine 14 mg/24 Hr 1 patch TRANSDERM DAILY PRN 02/07/17 02/07/17 History Patch] amLODIPine [Norvasc] 2.5 mg PO DAILY #30 tablet 02/07/17 Rx amLODIPine [Norvasc] 10 mg PO DAILY 02/07/17 02/07/17 History Allergies Allergy/AdvReac Type Severity Reaction Status Date / Time No Known Allergies Allergy Verified 02/21/17 20:18 Medical,Surgical,& Family Hx - Medical History Cardio: History of: Hypertension Neurology: History of: Cerebrovascular Accident - Surgical History Abdominal Surgeries: Surgical HX of: Appendectomy - Family History Family History: Reports;: Family Diabetes, Family Heart Disease, Family Hypertension, Family Stroke - Social History Smoking Status: Former smoker Frequency of Alcohol Use: None Type of Drug Use: None Review of systems: 12 point system was evaluated. Apart from the chief complaint history of presenting illness in the recent past history nothing else pans out. Patient is well-developed preserved and in no acute distress Exam - Constitutional Vitals: Period Temp Pulse Resp BP Sys/[place] Pulse Ox Last 24 Hr 97.6 F-97.6 F 90-90 18-18 151-151/102-102 97 General appearance: no acute distress, over weight - Head Head exam: Present: normal inspection, normocephalic, atraumatic - Eye Eye exam: Present: EOMI, other (Pupils are equal and reactive to right) Pupils: Present: DELORES - ENT ENT exam: Present: normal exam, other (Midline tongue, pharynx, good gag reflex) - Respiratory Respiratory exam: Present: clear to auscultation bilaterally - Cardiovascular Cardiovascular exam: Present: regular rate and rhythm, other (Sinus control) - GI/Abdominal GI/Abdominal exam: Present: normal bowel sounds, soft - Extremities Exam Extremities exam: Present: full ROM - Neurological Exam Neurological exam: Present: alert, oriented X3, CN II-XII intact - Psychiatric Psychiatric exam: Present: normal affect, normal mood - Skin Skin exam: Present: normal color, warm, dry Results - Labs CBC & BMP: 02/21/17 21:18 02/21/17 21:18 Lab Results: I have reviewed the past 24 hour labs
[2017-02-22] MEDS ORDERED: hydrALAZINE 20 MG/1 ML VIAL IV PRN (01:11)
--- NOTE | 2017-02-22 04:10 | EKG Report ---
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
--- NOTE | 2017-02-22 05:57 | EKG Report ---
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
--- NOTE | 2017-02-22 07:13 | XRay Report ---
Exam: XR chest 1V portable Date: 02/21/2017 9:07 PM Indication: Chest pain Comparison: 02/05/2017 Technical: AP portable Findings: External cardiac leads are present. The heart is at upper limits of normal. No obvious infiltrates or effusions. Mediastinum bony structures are intact Impression: 1. No acute cardiopulmonary pathology. PROCEDURE INTERPRETED AT [facility] [place] DEPARTMENT OF RADIOLOGY Final Report Signed by: Dr. Sree Miller
[2017-02-22] MEDS ORDERED: CARVEDILOL 6.25 MG TABLET PO SCH (08:00)
[2017-02-22] MEDS ORDERED: CLOPIDOGREL 75 MG TABLET PO SCH (09:00)
[2017-02-22] MEDS ORDERED: PANTOPRAZOLE 40 MG TABLET PO SCH (09:00)
[2017-02-22] MEDS ORDERED: ASPIRIN EC 81 MG TABLET PO SCH (09:00)
[2017-02-22] MEDS ORDERED: TRIAMTERENE/HCTZ 37.5-25 MG CAPSULE PO SCH (09:00)
[2017-02-22] MEDS ORDERED: ENOXAPARIN 40 MG/0.4 ML SYRINGE SUBCUT SCH (09:00)
[2017-02-22] MEDS ORDERED: LOSARTAN 25 MG TABLET PO SCH (09:00)
[2017-02-22] MEDS ORDERED: LOSARTAN 50 MG TABLET PO SCH (09:00)
[2017-02-22] MEDS ORDERED: amLODIPine 5 MG TABLET PO SCH (09:00)
[2017-02-22 12:17] VITALS: BP 150/91
--- NOTE | 2017-02-22 15:05 | Discharge Summary ---
Hospital Course - Hospital Course Hospital Course: The patient was admitted to the hospital with shortness of breath, anxiety, and hypertension. The patient was observed in the hospital overnight and his chronic essential hypertension was treated. Blood pressure has improved the following day and his symptoms have resolved. I am going to reinforce his regimen and discharge him home and asked him to make outpatient follow-up with a new primary care physician. On the date of discharge, the chest is now clear and heart has regular rate and rhythm. Patient medications were reconciled upon admission, and again at the time of discharge. The patient was screened for tobacco use and found to be a occasional smoker. The patient was given 4 minutes of tobacco avoidance education. The patient's medical decsion maker is themself, and when asked, they asked to be Full code. Discharge Time was 32 minutes, including final examination, evaluation and planning, education, reconciliation of medications, writing prescriptions, coordinating care with mattress spring encaser, and preparing discharge documentation. - Time spent with patient Time with patient DS: Greater than 30 minutes Diagnosis - Discharge Diagnosis (1) Hypertension Status: Chronic (2) Hypertensive cardiomyopathy Status: Chronic Discharge Plan - Discharge Data Disposition: Disch To Home/Self Care Condition at Discharge: Stable Discharge Diet: heart healthy Activity: resume usual activities as tolerated - Discharge Medications New Triamterene/Hctz 37.5-25 Cap [Dyazide] 1 capsule PO DAILY #60 capsule Continue amLODIPine [Norvasc] 10 mg PO DAILY #60 Atorvastatin [Lipitor] 80 mg PO BEDTIME #60 tablet Clopidogrel [Plavix] 75 mg PO DAILY #60 tablet Losartan [Cozaar] 25 mg PO DAILY #60 tablet Metoprolol Tartrate 50 mg PO Q12HR #100 Aspirin EC Tab 81 mg PO DAILY tablet Nicotine [Nicotine 14 mg/24 Hr Patch] 1 patch TRANSDERM DAILY PRN PRN Reason: Nicotine Withdrawal Discontinued Carvedilol [Coreg] 6.25 mg PO BID W/MEALS #60 tablet amLODIPine [Norvasc] 2.5 mg PO DAILY #30 tablet Lisinopril 20 mg PO DAILY - Follow Up or Referral Follow Up: Isa Ruiz DO [Physician] - 1 Month - Forms/Instructions Exam - Constitutional Vitals: Period Temp Pulse Resp BP Sys/[place] Pulse Ox Last 24 Hr 97.4 F-98.6 F 57-90 18-20 120-151/71-102 94-100 Discharge Results Procedures and tests throughout hospitalization: Pending Orders 02/21/17 21:07 Urinalysis Stat Labs on day of discharge: Labs from last 24 hours 02/22/17 02/22/17 02/22/17 07:05 04:25 02:38 WBC RBC Hgb Hct MCV MCH MCHC RDW Plt Count MPV Neut % (Auto) Lymph % (Auto) [place] % (Auto) Eos % (Auto) Baso % (Auto) Neut # (Auto) Lymph # (Auto) [place] # (Auto) Eos # (Auto) Baso # (Auto) Immature Gran % Nucleated RBC % Immature Gran # Nucleated RBCs # Immature Plt Fraction Sodium Potassium Chloride Carbon Dioxide Anion Gap BUN Creatinine GFR Calculation BUN/Creatinine Ratio Glucose Calculated Osmolality Calcium Magnesium Total Bilirubin AST ALT Alkaline Phosphatase Troponin I < 0.015 < 0.015 < 0.015 B-Natriuretic Peptide Total Protein Albumin Globulin Albumin/Globulin Ratio Lipase Digoxin 02/22/17 02/21/17 02/21/17 02:38 21:18 21:18 WBC 8.0 RBC 5.42 Hgb 16.2 Hct 48.7 MCV 89.9 MCH 30 MCHC 33.3 RDW 14.4 Plt Count 191 MPV 11.4 Neut % (Auto) 63.9 Lymph % (Auto) 25.9 [place] % (Auto) 8.7 Eos % (Auto) 0.4 Baso % (Auto) 0.9 H Neut # (Auto) 5.1 Lymph # (Auto) 2.1 [place] # (Auto) 0.7 Eos # (Auto) 0.0 Baso # (Auto) 0.1 Immature Gran % 0.2 Nucleated RBC % 0.0 Immature Gran # 0.02 Nucleated RBCs # 0.00 Immature Plt Fraction 0.0 Sodium Potassium Chloride Carbon Dioxide Anion Gap BUN Creatinine GFR Calculation BUN/Creatinine Ratio Glucose Calculated Osmolality Calcium Magnesium Total Bilirubin AST ALT Alkaline Phosphatase Troponin I < 0.015 < 0.015 B-Natriuretic Peptide Total Protein Albumin Globulin Albumin/Globulin Ratio Lipase Digoxin 02/21/17 02/21/17 02/21/17 21:18 21:18 21:18 WBC RBC Hgb Hct MCV MCH MCHC RDW Plt Count MPV Neut % (Auto) Lymph % (Auto) [place] % (Auto) Eos % (Auto) Baso % (Auto) Neut # (Auto) Lymph # (Auto) [place] # (Auto) Eos # (Auto) Baso # (Auto) Immature Gran % Nucleated RBC % Immature Gran # Nucleated RBCs # Immature Plt Fraction Sodium 143 Potassium 3.8 Chloride 106 Carbon Dioxide 31 Anion Gap 9.8 BUN 13 Creatinine 1.40 H GFR Calculation 102 BUN/Creatinine Ratio 9.00 Glucose 98 Calculated Osmolality 284.0 Calcium 9.6 Magnesium 2.6 H Total Bilirubin 0.40 AST 17 ALT 41 Alkaline Phosphatase 93 Troponin I B-Natriuretic Peptide 253 H Total Protein 7.1 Albumin 3.4 Globulin 3.7 H Albumin/Globulin Ratio 0.9 L Lipase 396.0 H Digoxin 0.10 L DS: Provider Date of admission: 02/22/17 00:31 Primary care physician: . No PCP Attending physician on admission: Hao Tyler MD Consults: 02/22/17 02:28 Consult to Dietitian [CONS] Routine Reason for Dietitian: Dietary Consult Discharging clinician: Stewart Daniels MD
== END 2017-02-22 17:55 | disposition home or self-care (01) ==
LOC: N.ED 19:58 → N.EDINP 02-22 00:31 → SUATTDRO 02-22 00:31 → INTOOBSV 02-22 00:31 → N.TELES 02-22 01:34
PROVIDERS: ADMIT Internal Medicine Infectious Disease; ATTEND Internal Medicine

== ENCOUNTER 2019-04-14 13:44 | Inpatient (IN) ==
[2019-04-14 14:33] LABS: Basophils # 0.1 10*3/uL (0.0-0.2); Basophils % 0.4 % (0.0-0.8); Eosinophils % 0.1 % (0.00-10.9); Hematocrit 49.5 VOL% (42.0-52.0); Hemoglobin 16.4 GM/DL (14.0-18.0); Immature Granulocytes % 0.5 %; Immature Granulocytes Absolute 0.07 #; Lymphocytes # 1.8 10*3/uL (1.4-4.0); Lymphocytes % 12.1 % (21.2-54.2); Mean Corpuscular HGB Conc 33.1 GM/DL (32-36); Mean Corpuscular Volume 92.2 FL (87-102); Mean Platelet Volume 11.2 FL (9.6-12.0); Neutrophils % 81.9 % (38.7-73.9); Platelet Count 200 T/CUMM (130-400); Red Blood Count 5.37 MC/CUMM (3.8-5.5); Red Cell Distribution Width 15.3 % (9.3-17.3); White Blood Count 14.9 T/CUMM (4-12)
[2019-04-14 14:45] LABS: PT Patient Result 10.7 SECS (9.6-12.2); Partial Thromboplastin Time 27.6 SECS (20.8-36.0)
[2019-04-14 15:03] LABS: Albumin 3.6 G/DL (3.4-5.0); Bilirubin,Total 0.7 MG/DL (0.2-1.0); Calcium 8.9 MG/DL (8.5-10.1); Osmolality,Calculated 282.1 MOS/KG (273-304)
[2019-04-14] MEDS ORDERED: cloNIDine 0.1 MG TABLET ONE (15:42)
[2019-04-14] MEDS ORDERED: cloNIDine 0.1 MG TABLET PO STA (15:43)
[2019-04-14] MEDS ORDERED: ACETAMINOPHEN 325 MG TABLET PO PRN (16:43)
[2019-04-14] MEDS ORDERED: METOPROLOL TARTRATE 5 MG/5 ML VIAL IV STA (16:55)
[2019-04-14] MEDS: ENOXAPARIN 40 MG/0.4 ML SYRINGE SUBCUT SCH (17:28)
[2019-04-14] MEDS ORDERED: TUBERCULIN SKIN TEST 0.1 ML SYRINGE INTRADERM ONE (17:29)
[2019-04-14] MEDS ORDERED: INFLUENZA VIRUS VACCINE 0.5 ML SYRINGE IM ONE (18:24)
[2019-04-14] MEDS ORDERED: PNEUMOCOCCAL VACCINE (23 VALENT) 0.5 ML VIAL IM ONE (18:25)
[2019-04-14] MEDS: cefTRIAXone 1,000 MG in SYRINGE 1 EACH IV SCH (18:26)
[2019-04-14] MEDS: ONDANSETRON 4 MG/2 ML VIAL IV PRN (18:27)
[2019-04-14] MEDS ORDERED: ALBUTEROL/IPRATROPIUM 3 ML NEB RESP TX SCH (19:00)
[2019-04-14] MEDS: LEVALBUTEROL 0.31 MG/3 ML NEB RESP TX SCH (19:50)
[2019-04-14 19:57] LABS: HIV Antigen/Antibody Result Nonreactive (Nonreactive)
[2019-04-14] MEDS: AZITHROMYCIN INJ 500 MG in SODIUM CHLORIDE 0.9% 250 ML IV SCH (21:08)
[2019-04-15] MEDS: LEVALBUTEROL 0.31 MG/3 ML NEB RESP TX SCH ×4 (00:35→20:44)
[2019-04-15 04:31] LABS: Basophils # 0.1 10*3/uL (0.0-0.2); Basophils % 0.4 % (0.0-0.8); Eosinophils % 0.1 % (0.00-10.9); Hematocrit 45.2 VOL% (42.0-52.0); Hemoglobin 14.3 GM/DL (14.0-18.0); Immature Granulocytes % 0.7 %; Immature Granulocytes Absolute 0.11 #; Lymphocytes % 12.2 % (21.2-54.2); Mean Corpuscular HGB Conc 31.6 GM/DL (32-36); Mean Corpuscular Volume 94.2 FL (87-102); Monocytes % 5.8 % (1.7-12.7); Neutrophils % 80.8 % (38.7-73.9); Platelet Count 182 T/CUMM (130-400); Red Cell Distribution Width 15.3 % (9.3-17.3); White Blood Count 16.8 T/CUMM (4-12)
[2019-04-15 05:21] LABS: Calcium 8.8 MG/DL (8.5-10.1); Osmolality,Calculated 287.8 MOS/KG (273-304); Risk Ratio 4.97; Thyroid Stimulating Hormone 0.239 uIU/ml (0.358-3.74); VLDL CHOLESTEROL 28.2 MG/DL
[2019-04-15] MEDS ORDERED: amLODIPine 10 MG TABLET PO SCH (09:00)
[2019-04-15] MEDS: NICOTINE 21 MG/24 HR PATCH TRANSDERM SCH (09:04)
[2019-04-15] MEDS: ASPIRIN EC 81 MG TABLET PO SCH (09:04)
[2019-04-15] MEDS: hydroCHLOROthiazide 25 MG TABLET PO SCH (09:04)
[2019-04-15] MEDS: PANTOPRAZOLE 40 MG TABLET PO SCH (09:05)
[2019-04-15 09:37] LABS: Apearance,Urine CLEAR (Clear); Bilirubin,Urine Negative (Negative); Blood, Urine Negative (Negative); Glucose,Urine (UA) Negative (Negative); Ketones,Urine 5 mg/dL (Negative); Mucus,Urine Occasional /LPF (Occasional); Nitrite,Urine Negative (Negative); Protein,Urine Negative; RBC,Urine 2 /HPF (0-4); Urine Color Yellow (Yellow); Urine Specific Gravity 1.026 (1.001-1.035); WBC,Urine <1 /HPF (0-6)
[2019-04-15] MEDS: carvediloL 3.125 MG TABLET PO SCH ×2 (11:26→17:01)
[2019-04-15] MEDS: cefTRIAXone 1,000 MG in SYRINGE 1 EACH IV SCH (17:01)
[2019-04-15] MEDS: ENOXAPARIN 40 MG/0.4 ML SYRINGE SUBCUT SCH (17:01)
[2019-04-15] MEDS: SACUBITRIL/VALSARTAN 49-51 MG TABLET PO SCH (20:19)
[2019-04-15] MEDS: AZITHROMYCIN INJ 500 MG in SODIUM CHLORIDE 0.9% 250 ML IV SCH (20:19)
[2019-04-15 20:43] LABS: Barbiturates Screen,Urine Negative (Negative); Benzodiazepines Screen,Urine Negative (Negative); Cannabinoid Screen,Urine Negative (Negative); Opiate Screen,Urine Positive (Negative); Phencyclidine Screen,Urine Negative (Negative)
[2019-04-15] MEDS: ONDANSETRON 4 MG/2 ML VIAL IV PRN (20:53)
[2019-04-16] MEDS: LEVALBUTEROL 0.31 MG/3 ML NEB RESP TX SCH ×4 (02:48→19:36)
[2019-04-16 04:24] LABS: Basophils # 0.1 10*3/uL (0.0-0.2); Basophils % 0.6 % (0.0-0.8); Eosinophils # 0.1 10*3/uL (0.0-0.87); Eosinophils % 0.6 % (0.00-10.9); Hematocrit 45.8 VOL% (42.0-52.0); Hemoglobin 14.6 GM/DL (14.0-18.0); Immature Granulocytes % 0.3 %; Immature Granulocytes Absolute 0.03 #; Lymphocytes # 2.1 10*3/uL (1.4-4.0); Lymphocytes % 21.3 % (21.2-54.2); Mean Corpuscular HGB Conc 31.9 GM/DL (32-36); Mean Corpuscular Volume 94.2 FL (87-102); Mean Platelet Volume 11.8 FL (9.6-12.0); Monocytes % 7.9 % (1.7-12.7); Neutrophils % 69.3 % (38.7-73.9); Platelet Count 165 T/CUMM (130-400); Red Blood Count 4.86 MC/CUMM (3.8-5.5); Red Cell Distribution Width 15.1 % (9.3-17.3); White Blood Count 9.8 T/CUMM (4-12)
[2019-04-16 05:50] LABS: Calcium 8.4 MG/DL (8.5-10.1)
[2019-04-16] MEDS: NICOTINE 21 MG/24 HR PATCH TRANSDERM SCH (09:07)
[2019-04-16] MEDS: AZITHROMYCIN 250 MG TABLET PO SCH (09:08)
[2019-04-16] MEDS: carvediloL 3.125 MG TABLET PO SCH (09:08)
[2019-04-16] MEDS: hydroCHLOROthiazide 25 MG TABLET PO SCH (09:09)
[2019-04-16] MEDS: PANTOPRAZOLE 40 MG TABLET PO SCH (09:09)
[2019-04-16] MEDS: SACUBITRIL/VALSARTAN 49-51 MG TABLET PO SCH ×2 (09:09→20:32)
[2019-04-16] MEDS: ASPIRIN EC 81 MG TABLET PO SCH (09:10)
[2019-04-16] MEDS ORDERED: carvediloL 3.125 MG TABLET PO ONE (13:38)
[2019-04-16] MEDS: cefTRIAXone 1,000 MG in SYRINGE 1 EACH IV SCH (16:45)
[2019-04-16] MEDS: ENOXAPARIN 40 MG/0.4 ML SYRINGE SUBCUT SCH (16:49)
[2019-04-16] MEDS: carvediloL 6.25 MG TABLET PO SCH (20:32)
[2019-04-17] MEDS: LEVALBUTEROL 0.31 MG/3 ML NEB RESP TX SCH ×3 (00:47→13:04)
[2019-04-17 04:22] LABS: Basophils % 0.5 % (0.0-0.8); Eosinophils % 0.6 % (0.00-10.9); Hematocrit 46.6 VOL% (42.0-52.0); Hemoglobin 15.2 GM/DL (14.0-18.0); Immature Granulocytes % 0.3 %; Immature Granulocytes Absolute 0.02 #; Lymphocytes # 1.5 10*3/uL (1.4-4.0); Lymphocytes % 23.5 % (21.2-54.2); Mean Corpuscular HGB Conc 32.6 GM/DL (32-36); Mean Corpuscular Volume 91.7 FL (87-102); Mean Platelet Volume 11.6 FL (9.6-12.0); Monocytes % 12.1 % (1.7-12.7); Platelet Count 169 T/CUMM (130-400); Red Blood Count 5.08 MC/CUMM (3.8-5.5); Red Cell Distribution Width 14.8 % (9.3-17.3); White Blood Count 6.2 T/CUMM (4-12)
[2019-04-17 04:43] LABS: Calcium 8.3 MG/DL (8.5-10.1); Osmolality,Calculated 276.7 MOS/KG (273-304)
[2019-04-17] MEDS ORDERED: methylPREDNISolone SOD SUC 40 MG/1 ML VIAL IV ONE (05:58)
[2019-04-17] MEDS ORDERED: diphenhydrAMINE CAP 25 MG CAPSULE PO ONE (05:58)
[2019-04-17] MEDS ORDERED: SPIRONOLACTONE 25 MG TABLET PO SCH (09:00)
[2019-04-17] MEDS: hydroCHLOROthiazide 25 MG TABLET PO SCH (09:16)
[2019-04-17] MEDS: SACUBITRIL/VALSARTAN 49-51 MG TABLET PO SCH ×2 (09:16→17:06)
[2019-04-17] MEDS: NICOTINE 21 MG/24 HR PATCH TRANSDERM SCH (09:16)
[2019-04-17] MEDS: PANTOPRAZOLE 40 MG TABLET PO SCH (09:17)
[2019-04-17] MEDS: carvediloL 6.25 MG TABLET PO SCH ×2 (09:17→17:05)
[2019-04-17] MEDS: ASPIRIN EC 81 MG TABLET PO SCH (09:17)
[2019-04-17] MEDS: AZITHROMYCIN 250 MG TABLET PO SCH (09:17)
[2019-04-17] MEDS ORDERED: IBUPROFEN 600 MG TABLET PO PRN (10:55)
[2019-04-17] MEDS: ENOXAPARIN 40 MG/0.4 ML SYRINGE SUBCUT SCH (16:41)
[2019-04-17] MEDS: cefTRIAXone 1,000 MG in SYRINGE 1 EACH IV SCH (17:05)
[2019-04-17 18:22] VITALS: BP 126/86
[2019-04-18 14:06] LABS: QuantiFERON-Tb Gold Pl Positive (Negative)
== END 2019-04-17 18:03 | disposition home or self-care (01) | DRG 194 ==
LOC: N.ED 13:44 → N.EDINP 16:41 → SUATTDRO 16:41 → N.CC 17:33
PROVIDERS: ADMIT Internal Medicine; ATTEND Internal Medicine

== ENCOUNTER 2019-11-26 18:23 | Inpatient (IN) ==
[2019-11-26] MEDS ORDERED: ASPIRIN 325 MG TABLET PO STA (18:56)
[2019-11-26] MEDS ORDERED: NITROGLYCERIN 2% OINT 1 INCH/GM PACK TOP STA (18:56)
[2019-11-26] MEDS ORDERED: MORPHINE 4 MG/1 ML VIAL IV STA (18:56)
[2019-11-26] MEDS ORDERED: ONDANSETRON 4 MG/2 ML VIAL IV STA (18:56)
[2019-11-26 19:11] LABS: Basophils # 0.1 10*3/uL (0.0-0.2); Basophils % 0.7 % (0.0-0.8); Eosinophils # 0.1 10*3/uL (0.0-0.87); Eosinophils % 0.6 % (0.00-10.9); Hematocrit 47.3 VOL% (42.0-52.0); Hemoglobin 15.1 GM/DL (14.0-18.0); Immature Granulocytes % 0.3 %; Immature Granulocytes Absolute 0.03 #; Lymphocytes # 2.1 10*3/uL (1.4-4.0); Lymphocytes % 22.3 % (21.2-54.2); Mean Corpuscular HGB Conc 31.9 GM/DL (32-36); Mean Corpuscular Volume 93.5 FL (87-102); Mean Platelet Volume 10.7 FL (9.6-12.0); Monocytes % 5.9 % (1.7-12.7); Neutrophils % 70.2 % (38.7-73.9); Platelet Count 215 T/CUMM (130-400); Red Blood Count 5.06 MC/CUMM (3.8-5.5); Red Cell Distribution Width 15.9 % (9.3-17.3); White Blood Count 9.4 T/CUMM (4-12)
[2019-11-26 19:34] LABS: Alanine Aminotransferase 25 U/L (16-61); Albumin 3.3 G/DL (3.4-5.0); Alkaline Phosphatase 68 U/L (45-117); Aspartate Amino Transferase 17 U/L (0-37); Blood Urea Nitrogen 13 MG/DL (7-18); Calcium 8.9 MG/DL (8.5-10.1); Estimated Glom Filtration Rate 96 ML/MIN; Glucose 86 MG/DL (74-106); Osmolality,Calculated 275.5 MOS/KG (273-304); Total Protein 7.1 G/DL (6.4-8.3); Troponin I < 0.015 NG/ML (0.00-0.045)
[2019-11-26 19:48] LABS: PT Patient Result 10.9 SECS (9.8-11.9)
[2019-11-26] MEDS ORDERED: FUROSEMIDE 40 MG/4 ML VIAL IV STA (19:58)
[2019-11-26 21:47] LABS: Apearance,Urine CLEAR (Clear); Bilirubin,Urine Negative (Negative); Blood, Urine Negative (Negative); Glucose,Urine (UA) Negative (Negative); Ketones,Urine Negative (Negative); Nitrite,Urine Negative (Negative); Protein,Urine Negative; RBC,Urine 3 /HPF (0-4); Urine Color Straw (Yellow); Urine Specific Gravity 1.012 (1.001-1.035); Urine Urobilinogen < 2.0 EU/DL (0.2-1.0); WBC,Urine 1 /HPF (0-6)
[2019-11-26 21:55] LABS: Barbiturates Screen,Urine Negative (Negative); Benzodiazepines Screen,Urine Negative (Negative); Cannabinoid Screen,Urine Negative (Negative); Opiate Screen,Urine Positive (Negative); Phencyclidine Screen,Urine Negative (Negative)
[2019-11-26] MEDS ORDERED: PIPERACILLIN/TAZOBACTAM 3,375 MG in SODIUM CHLORIDE 0.9% 100 ML IV STA (21:57)
[2019-11-26] MEDS ORDERED: hydrALAZINE 20 MG/1 ML VIAL ONE (21:57)
[2019-11-26] MEDS ORDERED: hydrALAZINE 20 MG/1 ML VIAL IV STA (21:57)
[2019-11-26] MEDS ORDERED: METOPROLOL TARTRATE 5 MG/5 ML VIAL IV ONE (22:32)
[2019-11-26] MEDS ORDERED: METOPROLOL TARTRATE 5 MG/5 ML VIAL IV STA (22:33)
[2019-11-26] MEDS ORDERED: DEXTROSE 50% 25 GM/50 ML VIAL IV PRN (23:46)
[2019-11-26] MEDS ORDERED: guaiFENesin/DM ER 600-30 MG TABLET PO PRN (23:46)
[2019-11-26] MEDS ORDERED: hydrALAZINE 20 MG/1 ML VIAL IV PRN (23:46)
[2019-11-26] MEDS ORDERED: ONDANSETRON 4 MG/2 ML VIAL IV PRN (23:46)
[2019-11-26] MEDS ORDERED: ACETAMINOPHEN 325 MG TABLET PO PRN (23:46)
[2019-11-26] MEDS ORDERED: NICOTINE 21 MG/24 HR PATCH TRANSDERM PRN (23:46)
[2019-11-26] MEDS ORDERED: ALUMINUM/MAGNES/SIMETH MAX STR 30 ML UDCUP PO PRN (23:46)
[2019-11-26] MEDS ORDERED: GLUCAGON 1 MG VIAL IM PRN (23:46)
[2019-11-26] MEDS ORDERED: diphenhydrAMINE CAP 25 MG CAPSULE PO PRN (23:46)
[2019-11-27 01:45] LABS: Risk Ratio 6.6; VLDL CHOLESTEROL 27.6 MG/DL
[2019-11-27] MEDS ORDERED: PNEUMOCOCCAL VACCINE (23 VALENT) 0.5 ML VIAL IM ONE (02:01)
[2019-11-27 05:28] LABS: Basophils % 0.4 % (0.0-0.8); Eosinophils % 0.5 % (0.00-10.9); Hematocrit 44.6 VOL% (42.0-52.0); Hemoglobin 14.6 GM/DL (14.0-18.0); Immature Granulocytes % 0.4 %; Immature Granulocytes Absolute 0.03 #; Lymphocytes # 1.6 10*3/uL (1.4-4.0); Lymphocytes % 19.6 % (21.2-54.2); Mean Corpuscular HGB Conc 32.7 GM/DL (32-36); Mean Corpuscular Volume 91.6 FL (87-102); Mean Platelet Volume 10.7 FL (9.6-12.0); Monocytes % 7.2 % (1.7-12.7); Neutrophils % 71.9 % (38.7-73.9); Platelet Count 200 T/CUMM (130-400); Red Blood Count 4.87 MC/CUMM (3.8-5.5)
[2019-11-27] MEDS ORDERED: PIPERACILLIN/TAZOBACTAM 3,375 MG in SODIUM CHLORIDE 0.9% 100 ML IV SCH (07:00)
[2019-11-27 07:53] LABS: Bilirubin,Total 1.4 MG/DL (0.2-1.0); Calcium 8.8 MG/DL (8.5-10.1); Total Protein 6.8 G/DL (6.4-8.3)
[2019-11-27 08:09] LABS: Osmolality,Calculated 277.5 MOS/KG (273-304)
[2019-11-27] MEDS: AZITHROMYCIN 250 MG TABLET PO SCH (08:36)
[2019-11-27] MEDS: cefTRIAXone 1,000 MG in SYRINGE 1 EACH IV SCH (08:37)
[2019-11-27] MEDS ORDERED: ENOXAPARIN 40 MG/0.4 ML SYRINGE SUBCUT SCH (09:00)
[2019-11-27] MEDS ORDERED: FUROSEMIDE 100 MG/10 ML VIAL IV ONE (10:00)
[2019-11-27] MEDS: FUROSEMIDE 40 MG/4 ML VIAL IV SCH (15:57)
[2019-11-28 05:37] LABS: Basophils # 0.1 10*3/uL (0.0-0.2); Basophils % 0.7 % (0.0-0.8); Eosinophils # 0.1 10*3/uL (0.0-0.87); Eosinophils % 0.8 % (0.00-10.9); Hematocrit 50.9 VOL% (42.0-52.0); Hemoglobin 16.2 GM/DL (14.0-18.0); Immature Granulocytes % 0.6 %; Immature Granulocytes Absolute 0.04 #; Lymphocytes # 1.7 10*3/uL (1.4-4.0); Lymphocytes % 23.7 % (21.2-54.2); Mean Corpuscular HGB Conc 31.8 GM/DL (32-36); Mean Corpuscular Volume 93.7 FL (87-102); Monocytes % 9.7 % (1.7-12.7); Neutrophils % 64.5 % (38.7-73.9); Platelet Count 217 T/CUMM (130-400); Red Blood Count 5.43 MC/CUMM (3.8-5.5); Red Cell Distribution Width 15.9 % (9.3-17.3); White Blood Count 7.1 T/CUMM (4-12)
[2019-11-28 05:53] LABS: Calcium 8.9 MG/DL (8.5-10.1); Osmolality,Calculated 281.3 MOS/KG (273-304)
[2019-11-28] MEDS: FUROSEMIDE 40 MG/4 ML VIAL IV SCH (08:52)
[2019-11-28] MEDS: AZITHROMYCIN 250 MG TABLET PO SCH (08:52)
[2019-11-28] MEDS: cefTRIAXone 1,000 MG in SYRINGE 1 EACH IV SCH (08:52)
[2019-11-28] MEDS ORDERED: carvediloL 6.25 MG TABLET PO SCH (09:00)
[2019-11-28] MEDS ORDERED: ASPIRIN EC 81 MG TABLET PO SCH (09:00)
[2019-11-28 11:55] VITALS: BP 150/104
== END 2019-11-28 13:34 | disposition home or self-care (01) | DRG 291 ==
LOC: N.ED 18:23 → N.EDINP 23:46 → N.2E 11-27 01:10
PROVIDERS: ADMIT Hospitalist; ATTEND Hospitalist